=== PATIENT | male | born 1955 | race Caucasian/White ===

== ENCOUNTER 2021-11-05 05:16 | Emergency (ER) | payer OTHER, MEDICAID ==
[~2021-11-05] VITALS: Ht 190.5 cm; Wt 136.1 kg
[2021-11-05 06:50] VITALS: BP 136/42
[2021-11-05 06:55] LABS: Basophils # (auto) 0.1 10 ^3/uL (0-0.2); Eosinophils # (auto) 0.1 10 ^3/uL (0-0.8); Eosinophils % (auto) 1.5 % (0.0-7.0); Hematocrit 42.7 % (41.0-53.0); Hemoglobin 14.7 g/dL (13.5-17.5); Lymphocytes # (auto) 1.3 10 ^3/uL (0.4-5.4); Lymphocytes % (auto) 15.9 % (10.0-50.0); Mean Corpuscular Hemoglobin 30.3 pg (28.0-32.0); Mean Corpuscular Hgb Conc. 34.4 g/dL (32.0-36.0); Monocytes # (auto) 0.9 10 ^3/uL (0-1.3); Monocytes % (auto) 11.6 % (0.0-12.0); Neutrophils # (auto) 5.6 10 ^3/uL (1.6-8.6); Nucleated Red Blood Cells % 0.1 %; Red Blood Cells 4.86 10^6/uL (4.5-5.90); Red Cell Distribution Width 14.5 % (11.8-14.3)
[2021-11-05] MEDS ORDERED: cefTRIAXone SOD 1,000 MG VL IM ONE (07:00)
[2021-11-05 07:13] LABS: Calcium 9.2 mg/dL (8.5-10.1); Potassium 4.8 mmol/L (3.5-5.1)
[2021-11-05 07:18] LABS: BUN/Creatinine Ratio 29.7; Bilirubin, Total 0.6 mg/dL (0.2-1.0); Total Protein 8.3 g/dL (6.4-8.2)
== END 2021-11-05 07:34 | disposition home or self-care (01) ==
LOC: ER 05:16
DX: G51.0 Bell's palsy (principal); K02.9 Dental caries, unspecified; I12.9 Hypertensive chronic kidney disease with stage 1 through stage 4 chronic kidney disease, or unspecified chronic kidney disease; N18.9 Chronic kidney disease, unspecified; F17.210 Nicotine dependence, cigarettes, uncomplicated; Z88.5 Allergy status to narcotic agent
CPT/HCPCS: 36415; 70450; 80053; 85025; 96372; 99284; J0696